=== PATIENT | male | born 1985 | race Caucasian/White ===

== ENCOUNTER → 2025-04-15 09:56 | Outpatient (CLI) | payer SELFPAY ==
--- NOTE | 2025-04-15 09:59 | DI.RAD.S_ITS ---
PROCEDURE: XR ANKLE RT MIN 3V INDICATIONS: Evaluate for arthropathy TECHNIQUE: 3 views of the ankle were acquired. COMPARISON: None. FINDINGS: Bones: No fractures or dislocations. Ankle mortise is normally aligned. Tiny plantar calcaneal enthesophyte is seen. No suspicious bony lesions. Soft tissues: Mild ankle soft tissue swelling. No tibiotalar joint effusion. Achilles tendon appears normal. IMPRESSION: No acute ankle fracture or dislocation. Mild ankle soft tissue swelling. Dictated by: Catrachito Sevilla M.D. on 04/15/2025 at 10:14 Approved by: Catrachito Sevilla M.D. on 04/15/2025 at 10:15
== END ==
LOC: RAD 09:58
PROVIDERS: Referring Provider Chiropractor; Visit Provider Chiropractor
DX: M25.471 Effusion, right ankle (principal); M25.571 Pain in right ankle and joints of right foot
CPT/HCPCS: 73610